=== PATIENT | female | born 1970 | race Two or more races ===

== ENCOUNTER 2023-10-29 11:43 | Inpatient (IN) | payer SELFPAY ==
[~2023-10-29] VITALS: Ht 157.5 cm; Wt 70.9 kg
[2023-10-29 12:52] LABS: Basophils # (auto) 0.1 10 ^3/uL (0-0.2); Basophils % (auto) 1.1 % (0.0-2.0); Eosinophils # (auto) 0.1 10 ^3/uL (0-0.8); Eosinophils % (auto) 1.9 % (0.0-7.0); Hematocrit 40.9 % (36.0-46.0); Hemoglobin 14.3 g/dL (12.2-16.2); Lymphocytes % (auto) 28.6 % (10.0-50.0); Mean Corpuscular Hemoglobin 31.1 pg (28.0-32.0); Mean Corpuscular Hgb Conc. 34.8 g/dL (32.0-36.0); Mean Corpuscular Volume 89.4 fL (80.0-100.0); Monocytes # (auto) 0.4 10 ^3/uL (0-1.3); Monocytes % (auto) 5.6 % (0.0-12.0); Neutrophils # (auto) 4.5 10 ^3/uL (1.6-8.6); Neutrophils % (auto) 62.8 % (37.0-80.0); Nucleated Red Blood Cells % 0.1 %; Red Blood Cells 4.58 10^6/uL (4.0-5.20); Red Cell Distribution Width 13.6 % (11.8-14.3); White Blood Cell 7.1 10^3/uL (4.4-10.8)
[2023-10-29 14:11] LABS: Chloride 102 mmol/L (98-107); Sodium 136 mmol/L (136-145)
[2023-10-29 14:11] LABS: Urine Bacteria FEW /hpf (None Seen); Urine Blood Negative /uL (Negative); Urine Clarity Clear (Clear); Urine Color Colorless (Yellow); Urine Protein, UAD Negative (Negative); Urine Specific Gravity 1.031 (1.001-1.035); Urine Urobilinogen Normal (Negative); Urine WBC 5 /hpf (0 - 5)
[2023-10-29 14:13] LABS: Calcium 9.5 mg/dL (8.7-10.4)
[2023-10-29 14:18] LABS: Anion Gap 5 (5-15); BUN/Creatinine Ratio 6.7 (10.0-20.0); Blood Urea Nitrogen 6 mg/dL (9-23); Carbon Dioxide 29 mmol/L (20-30); Potassium 4.2 mmol/L (3.5-5.1)
[2023-10-29 14:22] LABS: Glucose 402 mg/dL (74-106)
[2023-10-29] MEDS ORDERED: ONDANSETRON HCL 4 MG/2 ML VIAL IV PRN (15:30)
[2023-10-29] MEDS ORDERED: MORPHINE SULFATE INJ 2 MG/ml SYRG IV PRN (15:30)
[2023-10-29] MEDS ORDERED: SODIUM CHLORIDE 0.9% 1,000 ML IV SCH (15:30)
[2023-10-29] MEDS: DICYCLOMINE HCL (10MG/ML) 2 ML AMPULE IM ONE (15:30)
[2023-10-29] MEDS ORDERED: DEXTROSE (50%) 50ML SYRG IV PRN (15:30)
[2023-10-29] MEDS ORDERED: DOCUSATE SOD 100 MG CAP PO PRN (15:30)
[2023-10-29] MEDS ORDERED: NITROGLYCERIN 0.4 MG SL TAB SL PRN (15:30)
[2023-10-29] MEDS: SODIUM CHLORIDE 0.9% 1,000 ML IV ONE (15:48)
[2023-10-29] MEDS: InsuLIN REG 1unit/0.01ml Soln (100units/ml) IV ONE (15:52)
[2023-10-29] MEDS: ACCU-CHEK COMFORT CURVE STRIP VI SCH (15:53)
[2023-10-29] MEDS: InsuLIN REG 1unit/0.01ml Soln (100units/ml) SC SCH (15:53)
[2023-10-29] MEDS: cefTRIAXone 1GM/50ML D5W 50 ML IV ONE (15:56)
[2023-10-29 16:15] VITALS: PULSE 70; RESP 70; O2SAT 97
[2023-10-29] MEDS: DICYCLOMINE HCL 10 MG CAP PO SCH (18:16)
[2023-10-29 20:30] VITALS: PULSE 70; RESP 66; O2SAT 99
[2023-10-29] MEDS: GABAPENTIN 300 MG CAP PO SCH (22:13)
[2023-10-29 23:19] VITALS: PULSE 72; RESP 18; O2SAT 99
[2023-10-30] MEDS: SODIUM CHLORIDE 0.9% 1,000 ML IV SCH (00:04)
[2023-10-30 01:00] VITALS: BP 117/54; PULSE 64; RESP 18; TEMP 98; O2SAT 99
[2023-10-30 05:00] VITALS: BP 137/63; PULSE 63; RESP 17; TEMP 97.8; O2SAT 97
[2023-10-30 06:01] LABS: Basophils # (auto) 0 10 ^3/uL (0-0.2); Basophils % (auto) 0.6 % (0.0-2.0); Eosinophils # (auto) 0.2 10 ^3/uL (0-0.8); Eosinophils % (auto) 2.1 % (0.0-7.0); Hematocrit 39.5 % (36.0-46.0); Hemoglobin 13.6 g/dL (12.2-16.2); Lymphocytes # (auto) 2.9 10 ^3/uL (0.4-5.4); Lymphocytes % (auto) 37.8 % (10.0-50.0); Mean Corpuscular Hemoglobin 30.9 pg (28.0-32.0); Mean Corpuscular Hgb Conc. 34.5 g/dL (32.0-36.0); Mean Corpuscular Volume 89.6 fL (80.0-100.0); Monocytes # (auto) 0.5 10 ^3/uL (0-1.3); Monocytes % (auto) 6.5 % (0.0-12.0); Nucleated Red Blood Cells % 0.1 %; Red Cell Distribution Width 13.5 % (11.8-14.3); White Blood Cell 7.6 10^3/uL (4.4-10.8)
[2023-10-30 06:14] LABS: Alanine Aminotransferase 30 U/L (7-40); Albumin 3.4 g/dL (3.2-4.8); Alkaline Phosphatase 120 U/L (46-116); Anion Gap 5 (5-15); Aspartate Aminotransferase 23 U/L (13-40); BUN/Creatinine Ratio 12.2 (10.0-20.0); Bilirubin, Total 0.4 mg/dL (0.2-1.0); Blood Urea Nitrogen 6 mg/dL (9-23); Calcium 9.1 mg/dL (8.5-10.1); Carbon Dioxide 27 mmol/L (20-30); Chloride 109 mmol/L (98-107); Glucose 155 mg/dL (74-106); Potassium 3.7 mmol/L (3.5-5.1); Sodium 141 mmol/L (136-145)
[2023-10-30 06:15] LABS: Total Protein 5.6 g/dL (5.7-8.2)
[2023-10-30 08:05] VITALS: PULSE 68; RESP 18; O2SAT 97
[2023-10-30] MEDS: cefTRIAXone 1GM/50ML D5W 50 ML IV SCH (09:03)
[2023-10-30 09:14] VITALS: BP 131/72; PULSE 68; RESP 18; TEMP 97.9; O2SAT 97
[2023-10-30 13:20] VITALS: BP 121/59; PULSE 64; RESP 17; TEMP 97.8; O2SAT 96
[2023-10-30 21:00] VITALS: BP 141/69; PULSE 74; RESP 18; TEMP 98.2; O2SAT 97
[2023-10-30] MEDS: INSULIN LANTUS (GLARGINE) 1 /0.01ml (100units/ml) SC SCH (22:45)
[2023-10-31] VITALS (8 sets, daily range): BP systolic 104–156; BP diastolic 53–77; PULSE 56–84; RESP 17–21; TEMP 97.4–98.8; O2SAT 92–98
[2023-10-31] MEDS ORDERED: DEXTROSE (50%) 50ML SYRG IV PRN (10:00)
[2023-10-31] MEDS: PANTOPRAZOLE 40 MG/10 ML VIAL INJ IV ONE (10:23)
[2023-10-31] MEDS: PANTOPRAZOLE 40 MG/10 ML VIAL INJ IV SCH (10:32)
[2023-10-31] MEDS: FLORASTOR (S. BOULARDII) 250 MG CAP PO SCH (10:33)
[2023-10-31] MEDS: LISINOPRIL 5 MG TAB PO ONE (10:33)
[2023-10-31] MEDS: SODIUM CHLORIDE 0.9% 1,000 ML IV SCH (10:34)
[2023-10-31] MEDS: InsuLIN REG 1unit/0.01ml Soln (100units/ml) SC SCH (12:00)
[2023-10-31] MEDS: ACCU-CHEK COMFORT CURVE STRIP VI SCH (12:01)
[2023-10-31] MEDS: MORPHINE SULFATE INJ 2 MG/ml SYRG IV PRN (21:34)
[2023-11-01] VITALS (7 sets, daily range): BP systolic 130–145; BP diastolic 58–70; PULSE 58–71; RESP 16–20; TEMP 97.5–98.1; O2SAT 96–99
[2023-11-01 06:10] LABS: Basophils # (auto) 0 10 ^3/uL (0-0.2); Basophils % (auto) 0.7 % (0.0-2.0); Eosinophils # (auto) 0.2 10 ^3/uL (0-0.8); Eosinophils % (auto) 2.2 % (0.0-7.0); Hemoglobin 12.8 g/dL (12.2-16.2); Lymphocytes # (auto) 2.7 10 ^3/uL (0.4-5.4); Lymphocytes % (auto) 36.9 % (10.0-50.0); Mean Corpuscular Hemoglobin 30.8 pg (28.0-32.0); Mean Corpuscular Hgb Conc. 33.8 g/dL (32.0-36.0); Monocytes # (auto) 0.6 10 ^3/uL (0-1.3); Monocytes % (auto) 7.8 % (0.0-12.0); Neutrophils # (auto) 3.8 10 ^3/uL (1.6-8.6); Neutrophils % (auto) 52.4 % (37.0-80.0); Red Blood Cells 4.17 10^6/uL (4.0-5.20); Red Cell Distribution Width 13.5 % (11.8-14.3); White Blood Cell 7.2 10^3/uL (4.4-10.8)
[2023-11-01 06:24] LABS: Anion Gap 10 (5-15); Carbon Dioxide 24 mmol/L (20-30); Chloride 106 mmol/L (98-107); Potassium 3.8 mmol/L (3.5-5.1); Sodium 140 mmol/L (136-145)
[2023-11-01 06:25] LABS: Calcium 9.1 mg/dL (8.7-10.4)
[2023-11-01 06:30] LABS: BUN/Creatinine Ratio 11.8 (10.0-20.0); Blood Urea Nitrogen 8 mg/dL (9-23); Glucose 188 mg/dL (74-106)
[2023-11-01 06:31] LABS: Magnesium 1.5 mg/dL (1.6-2.6)
[2023-11-01] MEDS: LISINOPRIL 5 MG TAB PO SCH (08:51)
[2023-11-01] MEDS ORDERED: LOPERAMIDE HCL 2 MG CAP/TAB PO PRN (09:45)
[2023-11-01] MEDS: LOPERAMIDE HCL 2 MG CAP/TAB PO PRN (10:11)
[2023-11-01] MEDS: HYDROcodone-ACET 5/325MG TAB PO PRN (17:46)
[2023-11-02] VITALS (7 sets, daily range): BP systolic 115–154; BP diastolic 50–74; PULSE 54–69; RESP 16–18; TEMP 36.7; O2SAT 96–100
[2023-11-02] MEDS: PANTOPRAZOLE 40 MG TAB PO SCH (05:27)
[2023-11-02 08:07] LABS: Immunoglobulin A 207 mg/dL (87-352)
[2023-11-02] MEDS ORDERED: MET500T PO (10:38)
[2023-11-02] MEDS ORDERED: LEVO500T91 PO (10:38)
[2023-11-02] MEDS ORDERED: INSU100I49 SC (10:38)
[2023-11-02] MEDS ORDERED: LOPE2CAP2 PO (10:38)
[2023-11-02] MEDS ORDERED: INSLANTI SC (10:38)
[2023-11-02] MEDS ORDERED: LISI10TA34 PO (10:41)
[2023-11-04 06:06] LABS: Endomysial IgA Antibody Negative (Negative)
[2023-11-05 15:06] LABS: t-Transglutaminase (tTG) IgA <2 U/mL (0-3)
== END 2023-11-02 14:05 | disposition home or self-care (01) | DRG 74 ==
LOC: ER 11:43 → OVERFLOW 15:29 → CENTRAL 23:03
PROVIDERS: ADMIT Nurse Practitioner Family; ATTEND Internal Medicine
DX: G90.8 Other disorders of autonomic nervous system (principal); N30.00 Acute cystitis without hematuria; K62.89 Other specified diseases of anus and rectum; I10 Essential (primary) hypertension; B96.20 Unspecified Escherichia coli [E. coli] as the cause of diseases classified elsewhere; Z83.3 Family history of diabetes mellitus; Z79.4 Long term (current) use of insulin; Z98.891 History of uterine scar from previous surgery
CPT/HCPCS: 36415; 74176; 80048; 80053; 81001; 82010; 82784; 82962; 83036; 83516; 83735; 85025; 86255; 87086; 87088; 87186; 87493; 93970; G0378; J1815; J2470

== ENCOUNTER 2023-12-03 17:56 | Emergency (ER) | payer MEDICAID ==
[~2023-12-03] VITALS: Ht 157.5 cm; Wt 69.5 kg
[~2023-12-03 17:56] MED LIST: INSLANTI SC; INSU100I49 SC; LEVO500T91 PO; LISI10TA34 PO; LOPE2CAP2 PO; MET500T PO
[2023-12-03 19:11] LABS: Urine Bacteria FEW /hpf (None Seen); Urine Blood Negative /uL (Negative); Urine Clarity Clear (Clear); Urine Color Colorless (Yellow); Urine Protein, UAD Negative (Negative); Urine Specific Gravity 1.022 (1.001-1.035); Urine Urobilinogen Normal (Negative); Urine WBC 2 /hpf (0 - 5)
[2023-12-03] MEDS ORDERED: KETOROLAC TROMETH 30 MG/ML 1ML VIAL IM ONE (19:15)
[2023-12-03 19:24] LABS: Basophils # (auto) 0.1 10 ^3/uL (0-0.2); Basophils % (auto) 0.9 % (0.0-2.0); Eosinophils # (auto) 0.2 10 ^3/uL (0-0.8); Eosinophils % (auto) 2.6 % (0.0-7.0); Hematocrit 39.4 % (36.0-46.0); Hemoglobin 13.5 g/dL (12.2-16.2); Lymphocytes # (auto) 2.3 10 ^3/uL (0.4-5.4); Lymphocytes % (auto) 34.1 % (10.0-50.0); Mean Corpuscular Hemoglobin 30.9 pg (28.0-32.0); Mean Corpuscular Hgb Conc. 34.2 g/dL (32.0-36.0); Mean Corpuscular Volume 90.2 fL (80.0-100.0); Monocytes # (auto) 0.4 10 ^3/uL (0-1.3); Monocytes % (auto) 6.3 % (0.0-12.0); Neutrophils # (auto) 3.8 10 ^3/uL (1.6-8.6); Neutrophils % (auto) 56.1 % (37.0-80.0); Nucleated Red Blood Cells % 0.1 %; Red Blood Cells 4.37 10^6/uL (4.0-5.20); Red Cell Distribution Width 13.6 % (11.8-14.3); White Blood Cell 6.8 10^3/uL (4.4-10.8)
[2023-12-03 19:39] LABS: Alanine Aminotransferase 43 U/L (7-40); Albumin 4.2 g/dL (3.2-4.8); Alkaline Phosphatase 191 U/L (46-116); Anion Gap 4 (5-15); Aspartate Aminotransferase 26 U/L (13-40); BUN/Creatinine Ratio 13.9 (10.0-20.0); Bilirubin, Total 0.4 mg/dL (0.2-1.0); Blood Urea Nitrogen 11 mg/dL (9-23); Calcium 9.6 mg/dL (8.7-10.4); Carbon Dioxide 32 mmol/L (20-30); Chloride 102 mmol/L (98-107); Glucose 348 mg/dL (74-106); Potassium 3.8 mmol/L (3.5-5.1); Sodium 138 mmol/L (136-145); Total Protein 7.2 g/dL (5.7-8.2)
[2023-12-03] MEDS: IBUPROFEN 600 MG TAB PO ONE (20:36)
[2023-12-03] MEDS ORDERED: METF-370 PO (20:41)
[2023-12-03] MEDS ORDERED: BLOO1KIT60 XX (20:41)
[2023-12-03] MEDS ORDERED: GABA-1250 PO (20:41)
[2023-12-03 21:16] VITALS: BP 119/75; PULSE 78; RESP 18; TEMP 97.9; O2SAT 100
== END 2023-12-03 21:23 | disposition home or self-care (01) ==
LOC: ER 17:56
DX: E11.65 Type 2 diabetes mellitus with hyperglycemia (principal); E11.40 Type 2 diabetes mellitus with diabetic neuropathy, unspecified; I10 Essential (primary) hypertension; Z98.890 Other specified postprocedural states; Z79.899 Other long term (current) drug therapy
CPT/HCPCS: 36415; 80053; 81001; 82962; 83605; 85025

== ENCOUNTER → 2024-01-10 | Outpatient (CLI) | payer MEDICAID ==
[~2024-01-10] MED LIST changes: +BLOO1KIT60 XX; +GABA-1250 PO; +METF-370 PO
[2024-01-10 11:28] LABS: Basophils # (auto) 0 10 ^3/uL (0-0.2); Basophils % (auto) 0.6 % (0.0-2.0); Eosinophils # (auto) 0.2 10 ^3/uL (0-0.8); Eosinophils % (auto) 2.7 % (0.0-7.0); Hematocrit 41.9 % (36.0-46.0); Hemoglobin 14.7 g/dL (12.2-16.2); Lymphocytes # (auto) 1.9 10 ^3/uL (0.4-5.4); Mean Corpuscular Hemoglobin 31.7 pg (28.0-32.0); Mean Corpuscular Volume 90.5 fL (80.0-100.0); Monocytes # (auto) 0.2 10 ^3/uL (0-1.3); Monocytes % (auto) 4.1 % (0.0-12.0); Neutrophils # (auto) 3.3 10 ^3/uL (1.6-8.6); Neutrophils % (auto) 58.6 % (37.0-80.0); Nucleated Red Blood Cells % 0.1 %; Platelet Count (auto) 160 10^3/uL (140-450); Red Blood Cells 4.63 10^6/uL (4.0-5.20); Red Cell Distribution Width 13.3 % (11.8-14.3); White Blood Cell 5.6 10^3/uL (4.4-10.8)
[2024-01-10 11:30] LABS: Urine Bacteria FEW /hpf (None Seen); Urine Blood Negative /uL (Negative); Urine Clarity Turbid (Clear); Urine Color Light-Yellow (Yellow); Urine Mucus FEW (None Seen); Urine Protein, UAD TRACE (Negative); Urine Specific Gravity 1.025 (1.001-1.035); Urine Urobilinogen Normal (Negative); Urine WBC 3 /hpf (0 - 5)
[2024-01-10 11:59] LABS: Alanine Aminotransferase 45 U/L (7-40); Albumin 4.3 g/dL (3.2-4.8); Alkaline Phosphatase 148 U/L (46-116); Anion Gap 4 (5-15); Aspartate Aminotransferase 25 U/L (13-40); BUN/Creatinine Ratio 11.9 (10.0-20.0); Bilirubin, Total 0.6 mg/dL (0.2-1.0); Blood Urea Nitrogen 8 mg/dL (9-23); Calcium 9.4 mg/dL (8.7-10.4); Carbon Dioxide 31 mmol/L (20-30); Chloride 102 mmol/L (98-107); Glucose 319 mg/dL (74-106); Potassium 3.9 mmol/L (3.5-5.1); Sodium 137 mmol/L (136-145); Total Protein 7.2 g/dL (5.7-8.2)
[2024-01-10 13:01] LABS: LDL Cholesterol 101 mg/dL (< 100); Triglycerides 136 mg/dL (< 150)
[2024-01-10 13:02] LABS: Cholesterol 167 mg/dL (< 200); HDL Cholesterol 49 mg/dL (40-59)
[2024-01-10 13:10] LABS: Creatinine, Urine 105.1 mg/dL (30.0-125.0)
== END | disposition home or self-care (01) ==
LOC: LAB 10:47
PROVIDERS: ATTEND Student in an Organized Health Care Education/Training Program
DX: I10 Essential (primary) hypertension (principal); E55.9 Vitamin D deficiency, unspecified; R19.7 Diarrhea, unspecified; R73.9 Hyperglycemia, unspecified
CPT/HCPCS: 36415; 80053; 80061; 81001; 82043; 82306; 82570; 83036; 84443; 85025

== ENCOUNTER 2024-01-14 21:23 | Emergency (ER) | payer MEDICAID ==
[~2024-01-14] VITALS: Ht 162.6 cm; Wt 83.0 kg
[2024-01-15] MEDS ORDERED: HYDR-4902 PO (00:05)
[2024-01-15] MEDS ORDERED: CYCL-838 PO ×2 (00:05→00:06)
[2024-01-15] MEDS ORDERED: IBU600T PO (00:06)
[2024-01-15 02:07] VITALS: BP 135/78; PULSE 92; RESP 16; TEMP 97.8; O2SAT 100
[2024-01-15] MEDS: HYDROcodone-ACET 10/325MG TAB PO ONE (02:28)
== END 2024-01-15 02:49 | disposition home or self-care (01) ==
LOC: EDBD 21:23 → ER 21:23 → EDSEX 21:23 → ER 01-15 02:48
DX: S42.212A Unspecified displaced fracture of surgical neck of left humerus, initial encounter for closed fracture (principal); S16.1XXA Strain of muscle, fascia and tendon at neck level, initial encounter; I10 Essential (primary) hypertension; E11.9 Type 2 diabetes mellitus without complications; Z98.890 Other specified postprocedural states; Z79.899 Other long term (current) drug therapy; V43.62XA Car passenger injured in collision with other type car in traffic accident, initial encounter; Y93.89 Activity, other specified; Y92.89 Other specified places as the place of occurrence of the external cause; Y99.8 Other external cause status
CPT/HCPCS: 29105; 71045; 72125; 73030

== ENCOUNTER → 2024-05-22 | Outpatient (CLI) | payer MEDICAID ==
[~2024-05-22] MED LIST changes: +CYCL-838 PO; +IBU600T PO
[2024-05-22 13:05] LABS: Urine Bacteria None Seen /hpf (None Seen)
[2024-05-22 13:13] LABS: Basophils # (auto) 0 10 ^3/uL (0-0.2); Basophils % (auto) 0.5 % (0.0-2.0); Eosinophils # (auto) 0.1 10 ^3/uL (0-0.8); Eosinophils % (auto) 1.9 % (0.0-7.0); Hematocrit 40.4 % (36.0-46.0); Hemoglobin 13.9 g/dL (12.2-16.2); Lymphocytes # (auto) 1.7 10 ^3/uL (0.4-5.4); Lymphocytes % (auto) 29.1 % (10.0-50.0); Mean Corpuscular Hemoglobin 30.4 pg (28.0-32.0); Mean Corpuscular Hgb Conc. 34.5 g/dL (32.0-36.0); Monocytes # (auto) 0.3 10 ^3/uL (0-1.3); Monocytes % (auto) 4.8 % (0.0-12.0); Neutrophils # (auto) 3.8 10 ^3/uL (1.6-8.6); Neutrophils % (auto) 63.7 % (37.0-80.0); Nucleated Red Blood Cells % 0.1 %; Platelet Count (auto) 169 10^3/uL (140-450); Red Blood Cells 4.59 10^6/uL (4.0-5.20)
[2024-05-22 13:19] LABS: Urine Blood Negative /uL (Negative); Urine Clarity Clear (Clear); Urine Color Colorless (Yellow); Urine Protein, UAD Negative (Negative); Urine Specific Gravity 1.036 (1.001-1.035); Urine Squamous Epithelial Cell FEW /hpf (<5); Urine Urobilinogen Normal (Negative); Urine WBC 1 /HPF (0-5); Urine pH 5.5 (5.0-9.0)
[2024-05-22 14:15] LABS: Creatinine, Urine 23.89 mg/dL (30.0-125.0)
[2024-05-22 14:18] LABS: Alanine Aminotransferase 37 U/L (7-40); Albumin 4.6 g/dL (3.2-4.8); Anion Gap 8 (5-15); Aspartate Aminotransferase 25 U/L (13-40); BUN/Creatinine Ratio 9.5 (10.0-20.0); Bilirubin, Total 0.3 mg/dL (0.2-1.0); Calcium 9.9 mg/dL (8.7-10.4); Carbon Dioxide 28 mmol/L (20-31); Chloride 102 mmol/L (98-107); Cholesterol 172 mg/dL (< 200); HDL Cholesterol 50 mg/dL (40-59); Potassium 3.8 mmol/L (3.5-5.1); Sodium 138 mmol/L (136-145); Total Protein 7.3 g/dL (5.7-8.2); Triglycerides 138 mg/dL (< 150)
[2024-05-22 14:26] LABS: Alkaline Phosphatase 205 U/L (46-116); Blood Urea Nitrogen 7 mg/dL (9-23); Glucose 317 mg/dL (74-106); LDL Cholesterol 115 mg/dL (< 100); Micro Albumin < 3.0 mg/L (<30.0)
== END | disposition home or self-care (01) ==
LOC: LAB 12:49
PROVIDERS: ATTEND Nurse Practitioner Family
DX: N39.0 Urinary tract infection, site not specified (principal); E11.9 Type 2 diabetes mellitus without complications; E78.5 Hyperlipidemia, unspecified; E55.9 Vitamin D deficiency, unspecified
CPT/HCPCS: 36415; 80053; 80061; 81001; 82043; 82306; 82570; 83036; 84443; 85025

== ENCOUNTER → 2024-08-06 | Outpatient (CLI) | payer MEDICAID ==
[2024-08-06 11:47] LABS: Basophils # (auto) 0.1 10 ^3/uL (0-0.2); Basophils % (auto) 1.1 % (0.0-2.0); Eosinophils # (auto) 0.2 10 ^3/uL (0-0.8); Eosinophils % (auto) 2.6 % (0.0-7.0); Hemoglobin 14.5 g/dL (12.2-16.2); Lymphocytes # (auto) 2.2 10 ^3/uL (0.4-5.4); Lymphocytes % (auto) 37.5 % (10.0-50.0); Mean Corpuscular Hemoglobin 29.7 pg (28.0-32.0); Mean Corpuscular Hgb Conc. 33.1 g/dL (32.0-36.0); Mean Corpuscular Volume 89.9 fL (80.0-100.0); Monocytes # (auto) 0.2 10 ^3/uL (0-1.3); Monocytes % (auto) 4.2 % (0.0-12.0); Neutrophils # (auto) 3.2 10 ^3/uL (1.6-8.6); Neutrophils % (auto) 54.6 % (37.0-80.0); Nucleated Red Blood Cells % 0.1 %; Platelet Count (auto) 145 10^3/uL (140-450); Red Blood Cells 4.89 10^6/uL (4.0-5.20); Red Cell Distribution Width 12.9 % (11.8-14.3); White Blood Cell 5.9 10^3/uL (4.4-10.8)
[2024-08-06 12:34] LABS: Creatinine, Urine 89.32 mg/dL (30.0-125.0)
[2024-08-06 12:37] LABS: Albumin 4.5 g/dL (3.2-4.8); Anion Gap 6 (5-15); Aspartate Aminotransferase 30 U/L (13-40); BUN/Creatinine Ratio 21.4 (10.0-20.0); Blood Urea Nitrogen 12 mg/dL (9-23); Calcium 9.8 mg/dL (8.7-10.4); Carbon Dioxide 31 mmol/L (20-31); Chloride 103 mmol/L (98-107); Potassium 3.9 mmol/L (3.5-5.1); Sodium 140 mmol/L (136-145); Total Protein 7.4 g/dL (5.7-8.2); Uric Acid 3.2 mg/dL (3.1-7.8)
[2024-08-06 12:38] LABS: Bilirubin, Total 0.5 mg/dL (0.2-1.0)
[2024-08-06 12:40] LABS: Alanine Aminotransferase 44 U/L (7-40); Alkaline Phosphatase 158 U/L (46-116); Glucose 212 mg/dL (74-106)
[2024-08-06 12:58] LABS: Triglycerides 140 mg/dL (< 150)
[2024-08-06 13:00] LABS: Cholesterol 182 mg/dL (< 200); HDL Cholesterol 53 mg/dL (40-59); LDL Cholesterol 118 mg/dL (< 100)
== END | disposition home or self-care (01) ==
LOC: LAB 11:25
PROVIDERS: ATTEND Nurse Practitioner Family
DX: E11.9 Type 2 diabetes mellitus without complications (principal); E78.5 Hyperlipidemia, unspecified; E55.9 Vitamin D deficiency, unspecified
CPT/HCPCS: 36415; 80053; 80061; 82043; 82306; 82570; 82607; 82746; 83036; 84443; 84550; 85025

== ENCOUNTER 2024-11-05 12:26 | Outpatient (CLI) | payer MEDICAID ==
[2024-11-05 12:55] LABS: Hematocrit 42.6 % (36.0-46.0); Hemoglobin 14.7 g/dL (12.2-16.2); Mean Corpuscular Hemoglobin 30.6 pg (28.0-32.0); Mean Corpuscular Volume 89.0 fL (80.0-100.0); Nucleated Red Blood Cells % 0.1 %
[2024-11-05 12:58] LABS: Urine Protein, UAD Negative (Negative)
[2024-11-05 13:36] LABS: Triglycerides 97 mg/dL (< 150)
[2024-11-05 13:37] LABS: Albumin 4.4 g/dL (3.2-4.8); Anion Gap 7 (5-15); BUN/Creatinine Ratio 23.6 (10.0-20.0); Bilirubin, Total 0.6 mg/dL (0.2-1.0); Blood Urea Nitrogen 13 mg/dL (9-23); Calcium 10.0 mg/dL (8.7-10.4); Carbon Dioxide 31 mmol/L (20-31); Chloride 105 mmol/L (98-107); Cholesterol 163 mg/dL (< 200); Potassium 3.9 mmol/L (3.5-5.1); Sodium 143 mmol/L (136-145); Total Protein 7.2 g/dL (5.7-8.2)
[2024-11-05 13:45] LABS: Alanine Aminotransferase 42 U/L (7-40); Alkaline Phosphatase 156 U/L (46-116); Glucose 143 mg/dL (74-106); HDL Cholesterol 60 mg/dL (40-59)
[2024-11-05 13:53] LABS: Hepatitis B Surface Antigen Negative (Negative)
[2024-11-05 14:15] LABS: Hepatitis C Antibody Negative (Negative)
== END 2024-11-05 17:00 | disposition home or self-care (01) ==
LOC: LAB 12:26
PROVIDERS: ATTEND Nurse Practitioner Family
DX: E11.42 Type 2 diabetes mellitus with diabetic polyneuropathy (principal); E78.5 Hyperlipidemia, unspecified; E55.9 Vitamin D deficiency, unspecified; K25.9 Gastric ulcer, unspecified as acute or chronic, without hemorrhage or perforation; Z12.11 Encounter for screening for malignant neoplasm of colon
CPT/HCPCS: 36415; 80053; 80061; 80074; 81001; 82306; 83036; 84443; 85025

== ENCOUNTER 2025-02-19 11:05 | Outpatient (CLI) | payer MEDICAID ==
[2025-02-19 11:36] LABS: Hematocrit 41.2 % (36.0-46.0); Hemoglobin 13.8 g/dL (12.2-16.2); Mean Corpuscular Hemoglobin 30.3 pg (28.0-32.0); Mean Corpuscular Volume 90.4 fL (80.0-100.0); Nucleated Red Blood Cells % 0.0 %
[2025-02-19 11:43] LABS: Urine Protein, UAD Negative (Negative)
[2025-02-19 12:08] LABS: Alanine Aminotransferase 31 U/L (7-40); Albumin 4.5 g/dL (3.2-4.8); Alkaline Phosphatase 109 U/L (46-116); Anion Gap 9 (5-15); BUN/Creatinine Ratio 19.7 (10.0-20.0); Blood Urea Nitrogen 12 mg/dL (9-23); Calcium 9.3 mg/dL (8.7-10.4); Carbon Dioxide 29 mmol/L (20-31); Chloride 104 mmol/L (98-107); Glucose 102 mg/dL (74-106); Potassium 3.6 mmol/L (3.5-5.1); Sodium 142 mmol/L (136-145); Total Protein 7.8 g/dL (5.7-8.2); Triglycerides 106 mg/dL (< 150)
[2025-02-19 12:09] LABS: Bilirubin, Total 0.6 mg/dL (0.2-1.0); Cholesterol 193 mg/dL (< 200); HDL Cholesterol 55 mg/dL (40-59)
== END 2025-02-19 17:00 | disposition home or self-care (01) ==
LOC: LAB 11:05
PROVIDERS: ATTEND Nurse Practitioner Family
DX: I10 Essential (primary) hypertension (principal); E11.42 Type 2 diabetes mellitus with diabetic polyneuropathy; E78.5 Hyperlipidemia, unspecified; E55.9 Vitamin D deficiency, unspecified
CPT/HCPCS: 36415; 80053; 80061; 81001; 82306; 83036; 84443; 85025